=== PATIENT | male | born 1990 | race Caucasian/White ===

== ENCOUNTER 2016-07-27 00:11 | Emergency (ER) | payer SELFPAY ==
--- NOTE | 2016-07-27 01:06 | ER Document Report ---
ED General - General Chief Complaint: Accidental Overdose Stated Complaint: POSSIBLE OVERDOSE Time Seen by Provider: 07/27/16 00:19 Notes: Patient is a 25-year-old male who presents after an overdose on heroin. Patient went to a constitution party injected heroin. His first time is used heroin 2 months. He says he only uses it when he is hanging out with friends. After using the heroin patient became apneic and therefore paramedics were called. They gave him 1 mg of Narcan he immediately awoke. He has been awake and alert and appropriate ever since. Denies any alcohol use. He said he did take Klonopin earlier. No recent fevers or infections. He is not on chronic medications. He says he is otherwise healthy. TRAVEL OUTSIDE OF THE [place] IN LAST 30 DAYS: No Past Medical History - Social History Smoking Status: Unknown if Ever Smoked Frequency of alcohol use: None Drug Abuse: Heroin, Prescription drugs Family History: Reviewed & Not Pertinent Patient has suicidal ideation: No Patient has homicidal ideation: No Renal/ Medical History: Denies: Hx Peritoneal Dialysis Review of Systems - Review of Systems Notes: My Normal Review Basic REVIEW OF SYSTEMS: CONSTITUTIONAL : Denies fever, chills, or sweats. Denies recent illness. CARDIOVASCULAR: Denies chest pain. RESPIRATORY: Patient became apneic. GASTROINTESTINAL: Denies abdominal pain. Denies nausea, vomiting, or diarrhea. Denies constipation. Last BM: MUSCULOSKELETAL: Denies neck or back pain or joint pain or swelling. SKIN: Denies rash or skin lesions. NEUROLOGICAL: Denies altered mental status or loss of consciousness. Denies headache. Denies weakness or paralysis or loss of use of either side. Denies problems with gait or speech. Denies sensory or motor loss. ALL OTHER SYSTEMS REVIEWED AND NEGATIVE. Physical Exam - Vital signs Vitals: Resp BP Pulse Ox 20 125/97 H 100 07/27/16 00:19 07/27/16 00:19 07/27/16 00:19 - Notes Notes: General Appearance: Well nourished, alert, cooperative, no acute distress, no obvious discomfort. Well appearing. Vitals: reviewed, See vital signs table. Head: no swelling or tenderness to the head Eyes: PERRL, EOMI, Conjuctiva clear Mouth: No decreasd moisture Throat: No tonsillar inflammation, No airway obstruction, No lymphadenopathy Neck: Supple, no neck tenderness Lungs: No wheezing, No rales, No rhonci, No accessory muscle use, good air exchange bilaterally. Heart: Normal rate, Regular rythm, No murmur, no rub Abdomen: Normal BS, soft, No rigidity, No abdominal tenderness, No guarding, no rebound, no abdominal masses, no organomegaly Extremities: strength 5/5 in all extremities, good pulses in all extremities, no swelling or tenderness in the extremities, no edema. Skin: warm, dry, appropriate color, no rash Neuro: speech clear, oriented x 3, normal affect, responds appropriately to questions. Cranial nerves II through XII are intact. Patient moves all extremities without difficulty. No neurologic deficits. Course - Vital Signs Vital signs: Temp Pulse Resp BP Pulse Ox 8 L 109/68 99 07/27/16 05:21 07/27/16 05:21 07/27/16 05:21 - EKG Interpretation by Me Additional EKG results interpreted by me: 07/27/16 01:06 G is reviewed and interpreted by me. EKG shows normal sinus rhythm with a rate of [address] segment elevation or depression. Patient does have a right bundle branch block on EKG. ID interval, QTc intervals are within normal range. QRS duration is borderline. No old EKGs were available for comparison. - Transfer of Care Notes: 07/27/16 05:48 Has not had any recurrences of difficulty breathing or hypoxemia. He has done well. He is encouraged to never use heroin or opiates again. I do believe him when he told me that he has not used them in a month being that he has no track soler on extremities with exception of the one from where he used heroin today. Prescribed the patient Narcan. I informed him to still try to avoid all opiate use; however, he falls to the urge to use heroin again he needs to keep Narcan with him in case he stops breathing again. He must return to the ER immediately if this Narcan. Patient agrees with plan and will be discharged home. Dictation of this chart was performed using voice recognition software; therefore, there may be some unintended grammatical errors. Discharge - Discharge Clinical Impression: Accidental heroin overdose Qualifiers: Encounter type: initial encounter Qualified Code(s): T40.1X1A - Poisoning by heroin, accidental (unintentional), initial encounter Condition: Good Disposition: HOME, SELF-CARE Additional Instructions: Please never use Heroin or any drugs that are not prescribed for your. Please stay away from all opiate medications. I have prescribed a lifesaving medication called narcan. Please keep this with you in case you decide to use heroin again and it causes you to stop breathing. If you use the Narcan you must call an ambulance and return to the ER imemdiately so you can be monitored. Prescriptions: Naloxone HCl [Narcan] 4 mg NS KAYLIN #1 spray
--- NOTE | 2016-07-27 02:05 | RADIOLOGY REPORT (SQ) ---
EXAM DESCRIPTION: HAND RIGHT 3 VIEWS COMPLETED DATE/TIME: 07/27/2016 1:46 am REASON FOR STUDY: trauma COMPARISON: None. EXAM PARAMETERS: NUMBER OF VIEWS: Three views. TECHNIQUE: AP, lateral and oblique radiographic images acquired of the right hand. LIMITATIONS: External hardware an immobilization artifact. FINDINGS: MINERALIZATION: Normal. BONES: No acute fracture or dislocation. No worrisome bone lesions. JOINTS: No effusions. SOFT TISSUES: No soft tissue swelling. No foreign body. OTHER: Small ulnar negative variance. IMPRESSION: NEGATIVE STUDY OF THE RIGHT HAND. NO RADIOGRAPHIC EVIDENCE OF ACUTE INJURY. Limitation. TECHNICAL DOCUMENTATION: JOB ID: [id number] [employer]- All Rights Reserved
[2016-07-27 05:57] VITALS: BP 112/76
--- NOTE | 2016-07-27 11:04 | EKG REPORT ---
SEVERITY:- ABNORMAL ECG - SINUS RHYTHM INCOMPLETE RIGHT BUNDLE BRANCH BLOCK ST ELEV, PROBABLE NORMAL EARLY REPOL PATTERN : Confirmed by: Chanelle Terrazas 27-Jul-2016 11:03:54
== END 2016-07-27 06:07 | disposition home or self-care (01) ==
LOC: ER 00:11
DX: T40.1X1A Poisoning by heroin, accidental (unintentional), initial encounter (principal); I45.10 Unspecified right bundle-branch block; Y92.009 Unspecified place in unspecified non-institutional (private) residence as the place of occurrence of the external cause
CPT/HCPCS: 93005; 93010; 99284